=== PATIENT | female | born 1950 | race Caucasian/White ===

== ENCOUNTER 2016-09-12 10:11 | Outpatient (CLI) | payer OTHER | END 2016-09-12 10:12 | disposition home or self-care (01) | DX: I50.30 Unspecified diastolic (congestive) heart failure (principal); I10 Essential (primary) hypertension; E78.5 Hyperlipidemia, unspecified ==

== ENCOUNTER 2016-09-12 10:13 | Outpatient (CLI) | payer OTHER | END 2016-09-12 10:14 | disposition home or self-care (01) | DX: I10 Essential (primary) hypertension (principal) ==

== ENCOUNTER 2022-07-23 08:00 | Outpatient (CLI) | payer MEDICARE, OTHER ==
[2022-07-23 16:32] LABS: BILIRUBIN,URINE NEGATIVE (NEGATIVE); GLUCOSE, URINE (UA) NEGATIVE (NEGATIVE); KETONES,URINE (UA) NEGATIVE (NEGATIVE); LEUKOCYTE ESTERASE, URINE NEGATIVE (NEGATIVE); NITRITE,URINE NEGATIVE (NEGATIVE); OCCULT BLOOD,URINE NEGATIVE (NEGATIVE); PH,URINE 5.5 PH (5.0-7.5); PROTEIN,URINE NEGATIVE (NEGATIVE); UROBILINOGEN,URINE 0.2 (NORMAL) E.U./dL (NORMAL)
[2022-07-23 16:34] LABS: CLARITY,URINE CLEAR (CLEAR)
[2022-07-23 16:49] LABS: ALBUMIN 4.6 g/dL (3.2-5.5); ALBUMIN/GLOBULIN RATIO 1.3 (1.0-2.2); ALKALINE PHOSPHATASE 93 IU/L (42-121); ALT ALANINE AMINOTRANSFERASE 18 IU/L (10-60); AST ASPARTATE AMINOTRANSFERASE 19 IU/L (10-42); BILIRUBIN,TOTAL 0.9 mg/dL (0.2-1.0); BUN - BLOOD UREA NITROGEN 16 mg/dL (6-20); CALCIUM 9.6 mg/dL (8.5-10.3); CARBON DIOXIDE - CO2 27 mmol/L (21-32); CHLORIDE 104 mmol/L (101-111); CHOL/HDL RATIO 6.2 (<4.4); CHOLESTEROL 311 mg/dL; GFR - MDRD 55 (>89); GLUCOSE 93 mg/dL (70-100); HDL CHOLESTEROL 50 mg/dL; LDL CHOLESTEROL,CALCULATED 235 mg/dL; LDL/HDL RATIO 4.7 (<4.4); POTASSIUM 3.7 mmol/L (3.5-5.0); SODIUM 141 mmol/L (135-145); TOTAL PROTEIN 8.1 g/dL (6.7-8.2); TRIGLYCERIDES 128 mg/dL; VLDL CHOLESTEROL 26 mg/dL
[2022-07-24 06:09] LABS: HCV AB <0.1 s/co ratio (0.0-0.9)
== END 2022-07-23 23:59 | disposition home or self-care (01) ==
LOC: LAB.R 08:00
PROVIDERS: ATTEND Internal Medicine
DX: Z00.00 Encounter for general adult medical examination without abnormal findings (principal); I10 Essential (primary) hypertension; R07.9 Chest pain, unspecified; Z11.59 Encounter for screening for other viral diseases; R82.998 Other abnormal findings in urine
CPT/HCPCS: 80053; 80061; 81001; 81003; 83721; 84443; 86803; 87086

== ENCOUNTER 2022-08-05 14:53 | Outpatient (CLI) | payer MEDICARE, OTHER ==
--- NOTE | 2022-08-14 08:24 | Mammography Report ---
BILATERAL DIGITAL SCREENING MAMMOGRAM 3D/2D WITH EXAGGERATED CC: 08/05/2022 CLINICAL: Routine screening. Family history of breast cancer. Comparison is made to exams dated: 10/13/2015 mammogram - [facility] and 10/15/2007 mammog anika - [facility]. Both breasts are heterogeneously dense, which may obscure small masses (category c / 51-75% glandular tissue). There is a focal asymmetry in the left breast central to the nipple in the retroareolar region. This is more prominent. No other significant masses, calcifications, or other findings are seen in either breast. IMPRESSION: INCOMPLETE: NEEDS ADDITIONAL IMAGING EVALUATION The focal asymmetry in the left breast is indeterminate. Additional views with possible ultrasound a re recommended. Based on the Tyrer Cuzick model (a risk assessment model) the patients lifetime risk is 6.5% and her 10 year risk is 3.8%. According to the ACR, ACS, and NCCN guidelines, an annual breast MRI exam david g with mammogram is recommended if the patients lifetime risk is 20% or greater. This exam was interpreted at Station ID: [id number]. NOTE: For mammograms, a report in lay terms will be sent to the patient. Approximately 15% of breast malignancies will not be visualized mammographically. In the management of a palpable breast mass, a negative mammogram must not discourage biopsy of a clinically suspicious lesion. Electronically Signed By: Tony Cano M.D. lc/:08/13/2022 10:35:38 ACR BI-RADS Category 0: Incomplete 3340F PARENCHYMAL PATTERN: (D) - The breast(s) demonstrate(s) heterogeneously dense fibroglandular parnataliey allen. BI-RADS CATEGORY: (0) - 0 Mammo and [place] [id number] Immediate follow-up LATERALITY: (B)
== END 2022-08-05 14:54 | disposition home or self-care (01) ==
LOC: DI.S 14:53
PROVIDERS: ATTEND Internal Medicine
DX: Z12.31 Encounter for screening mammogram for malignant neoplasm of breast (principal); R92.8 Other abnormal and inconclusive findings on diagnostic imaging of breast; Z80.3 Family history of malignant neoplasm of breast

== ENCOUNTER 2023-04-17 11:46 | Emergency (ER) | payer MEDICARE, OTHER ==
[2023-04-17 12:22] LABS: BASOPHILS # (AUTO) 0.1 10^3/uL (0.0-0.1); BASOPHILS % (AUTO) 0.4 %; EOSINOPHILS # (AUTO) 0.2 10^3/uL (0.0-0.7); EOSINOPHILS % (AUTO) 0.8 %; HCT - HEMATOCRIT 47.7 % (37.0-47.0); HGB - HEMOGLOBIN 15.8 g/dL (12.0-16.0); LYMPHOCYTES # (AUTO) 24.4 10^3/uL (1.5-3.5); LYMPHOCYTES % (AUTO) 82.9 %; MEAN CORPUSCULAR HEMOGLOBIN 31.6 pg (27.0-31.0); MEAN CORPUSCULAR HGB CONC 33.1 g/dL (32.0-36.0); MEAN CORPUSCULAR VOLUME 95.4 fL (81.0-99.0); MEAN PLATELET VOLUME 11.6 fL (7.9-10.8); MONOCYTES # (AUTO) 0.6 10^3/uL (0.0-1.0); NEUTROPHILS % (AUTO) 13.7 %; PLT - PLATELET COUNT 193 10^3/uL (130-450); RED CELL DISTRIBUTION WIDTH 12.6 % (12.0-15.0); WHITE BLOOD COUNT 29.4 x10^3/uL (4.8-10.8)
[2023-04-17] MEDS ORDERED: ATORVASTATIN 40 MG TABLET PO STA (12:23)
[2023-04-17] MEDS ORDERED: METOPROLOL TARTRATE 50 MG TABLET PO STA (12:23)
[2023-04-17] MEDS ORDERED: METOPROLOL 5 MG/5 ML VIAL IVP STA (12:23)
[2023-04-17] MEDS ORDERED: NITROGLYCERIN 2% PASTE TOP STA (12:23)
[2023-04-17 12:24] LABS: SLIDE REVIEW? Indicated
--- NOTE | 2023-04-17 12:26 | ED Physician Documentation ---
PD HPI CHEST PAIN - Stated complaint Stated Complaint: CHEST PX, ARM PX - Chief complaint Chief Complaint: Cardiac - History obtained from History obtained from: Patient, Family - Additional information Additional information: 72-year-old woman with no known history of coronary disease, but last year she was having an echo stress and developed hypertension due to it. Because of that the stress test was aborted and she failed to follow-up after that. Over the last 6 days she has had what sounds to me like crescendo unstable angina. 6 days ago she had an episode of bilateral chest burning radiating to both arms and the jaw while walking to the mailbox. Yesterday she had an episode while looking for her cat outside. This morning she had an episode while bending over in the shower and then had another episode on arrival to the emergency department but is pain-free now. Each episode lasted 5 to 10 minutes and eventually went away. During the episode she is short of breath and sweaty but not nauseous or dizzy. She denies pedal edema or calf pain. No recent travel. She has never been a smoker. She does have a history of hyperlipidemia but was not tolerant of a statin and stopped it. She took 4 baby aspirin prior to arrival. PD PAST MEDICAL HISTORY - Allergies Allergies/Adverse Reactions: Allergies Allergy/AdvReac Type Severity Reaction Status Date / Time Sulfa (Sulfonamide Allergy Hives Verified 04/17/23 12:07 Antibiotics) PD ED PE NORMAL - Vitals Vital signs reviewed: Yes - General General: Alert and oriented X 3, No acute distress - Neck Neck: Supple, no meningeal sign, No bony TTP - Cardiac Cardiac: RRR, No murmur - Respiratory Respiratory: No respiratory distress, Clear bilaterally - Abdomen Abdomen: Non tender - Extremities Extremities: No edema, No calf tenderness / cord - Neuro Neuro: Alert and oriented X 3, Normal speech Results - Vitals Vitals: Vital Signs - 24 hr 04/17/23 04/17/23 04/17/23 12:00 12:35 13:35 Temperature 36.7 C Heart Rate 95 67 62 Respiratory 20 16 17 Rate Blood Pressure 218/102 H 200/87 H 174/73 H O2 Saturation 97 96 98 04/17/23 04/17/23 04/17/23 13:36 15:30 16:02 Temperature Heart Rate 64 60 75 Respiratory 18 14 14 Rate Blood Pressure 176/82 H 163/73 H 160/75 H O2 Saturation 99 98 100 Oxygen O2 Source Room air - EKG (time done) 1153 EKG releavant findings:: EKG personally interpreted by author of this note. Relevant findings are: Rate: Rate (enter#) Rhythm: NSR (With PVCs) [place]: Normal Intervals: Normal MD QRS: Normal Ischemia: ST depression (2 3 and F), Q waves (V1 through V3), T wave inversion (V4 through V6). No: ST elevation c/w ischemia Computer interpretation: Agree with computer - Labs Labs: Laboratory Tests 04/17/23 04/17/23 04/17/23 12:05 12:05 12:55 WBC 29.4 H RBC 5.00 Hgb 15.8 Hct 47.7 H MCV 95.4 MCH 31.6 H MCHC 33.1 RDW 12.6 Plt Count 193 MPV 11.6 H Neut # (Auto) 4.0 Lymph # (Auto) 24.4 H [place] # (Auto) 0.6 Eos # (Auto) 0.2 Baso # (Auto) 0.1 Absolute Nucleated RBC 0.00 Band Neuts % (Manual) Not Reportable Abnorm Lymph % (Manual) Not Reportable Nucleated RBC % 0.0 Neutrophils # (Manual) Not Reportable Lymphocytes # (Manual) Not Reportable Monocytes # (Manual) Not Reportable Eosinophils # (Manual) Not Reportable Basophils # (Manual) Not Reportable Differential Comment M Manual Slide Review Indicated WBC Morphology 2+ SMUDGE CELLS Platelet Estimate NORMAL (130-450,000) Platelet Morphology NORMAL APPEARANCE RBC Morph Micro Appear NORMAL APPEARANCE Sodium 140 Potassium 3.4 L Chloride 106 Carbon Dioxide 26 Anion Gap 8.0 BUN 21 H Creatinine 0.8 Estimated GFR (MDRD) 71 L Glucose 109 H Calcium 10.2 Total Bilirubin 0.8 AST 20 ALT 17 Alkaline Phosphatase 100 Troponin I High Sens 148.0 H* Total Protein 7.9 Albumin 5.1 Globulin 2.8 Albumin/Globulin Ratio 1.8 Lipase 40 SARS-CoV-2 (PCR) NOT DETECTED Slides for Path Review Indicated 04/17/23 14:32 WBC RBC Hgb Hct MCV MCH MCHC RDW Plt Count MPV Neut # (Auto) Lymph # (Auto) [place] # (Auto) Eos # (Auto) Baso # (Auto) Absolute Nucleated RBC Band Neuts % (Manual) Abnorm Lymph % (Manual) Nucleated RBC % Neutrophils # (Manual) Lymphocytes # (Manual) Monocytes # (Manual) Eosinophils # (Manual) Basophils # (Manual) Differential Comment Manual Slide Review WBC Morphology Platelet Estimate Platelet Morphology RBC Morph Micro Appear Sodium Potassium Chloride Carbon Dioxide Anion Gap BUN Creatinine Estimated GFR (MDRD) Glucose Calcium Total Bilirubin AST ALT Alkaline Phosphatase Troponin I High Sens 172.0 H* Total Protein Albumin Globulin Albumin/Globulin Ratio Lipase SARS-CoV-2 (PCR) Slides for Path Review PD Medical Decision Making - ED course ED course: 72-year-old woman comes in with history very consistent with unstable angina. No real pain at this time, but she is quite hypertensive. After initial evaluation she was administered IV and oral metoprolol, statin, Nitropaste. Work-up in the department demonstrates a white count of 29,000 with significant lymphocytosis. This was discussed with patient and and probably will need oncology follow-up for this but may or may not be related to the current issue. She is noted to have normal renal function and a troponin of 148 consistent with unstable angina/non-STEMI. [facility] was called for possible transfer at approximately 1 PM. She is pain-free at this time. [facility] was full and could not accommodate a transfer. Talked to the family and in this order we will call: 1. [place] 2. [facility] 3. [facility] 4. [facility] Of note, incidentally she does have a significant lymphocytosis. The etiology is unknown. Pathology smear is being performed. She really does not have any symptoms of more chronic fatigue. She is not aware of a prior problem with lymphocytosis. I discussed her case with Dr. Doug Jaquez at [facility] who agrees she probably will need a cath, the lymphocytosis gives him pause and he may want to do further work-up before cath because of that. He defers to the hospitalist there for admission. Accepted by Dr. Loera, hospitalist at [facility] at 2:55 PM. He does request a heparin drip. I also ordered a single dose of IV hydralazine as blood pressure is maintaining about 180/80. She is adequately beta blocked with a heart rate of around 60. Second troponin did trend up from 148, up to 172. - Critical Care Time(min): 42 Time Includes: Direct patient care, Review records, Reassess patient, Document care, Coordinate care, Medical consult, Family consult for tx dec Data interpretation: Labs, Pulse ox Procedures excluded from critical care time: EKG Departure - Departure Disposition: 02 Transfer Acute Care Hosp Clinical Impression: NSTEMI (non-ST elevated myocardial infarction), Lymphocytosis Condition: Serious Forms: PCP List Discharge Date/Time: 04/17/23 16:42
[2023-04-17 12:38] LABS: ALBUMIN 5.1 g/dL (3.2-5.5); ALBUMIN/GLOBULIN RATIO 1.8 (1.0-2.2); BILIRUBIN,TOTAL 0.8 mg/dL (0.2-1.0); CALCIUM 10.2 mg/dL (8.5-10.3); CREATININE 0.8 mg/dL (0.6-1.3); POTASSIUM 3.4 mmol/L (3.5-4.5); TOTAL PROTEIN 7.9 g/dL (6.4-8.9)
[2023-04-17 12:47] LABS: PLATELET ESTIMATE, MANUAL NORMAL (130-450,000) (NORMAL); PLATELET MORPHOLOGY NORMAL APPEARANCE (NORMAL); RBC MORPHOLOGY (MULTIPLE) NORMAL APPEARANCE (NORMAL); WBC MORPHOLOGY (MULTIPLE) 2+ SMUDGE CELLS (NORMAL)
[2023-04-17 12:48] LABS: DIFFERENTIAL COMMENT M; SLIDE SENT FOR PATH REVIEW? Indicated
--- NOTE | 2023-04-17 13:01 | XRAY Report ---
PROCEDURE: Chest 1 View X-Ray INDICATIONS: Chest Pain TECHNIQUE: One view of the chest was acquired. COMPARISON: None. FINDINGS: Surgical changes and devices: None. Lungs and pleura: No pleural effusions or pneumothorax. Lungs are clear. Lungs are hyperexpanded suggestive COPD. Mediastinum: Mediastinal contours appear normal. Heart size is normal. Bones and chest wall: No suspicious bony lesions. Overlying soft tissues appear unremarkable. IMPRESSION: No acute cardiopulmonary process. Reviewed by: Jeana Galloway MD on 04/17/2023 1:00 PM PDT Approved by: Jeana Galloway MD on 04/17/2023 1:00 PM PDT Station ID: [id number]
[2023-04-17] MEDS ORDERED: ONDANSETRON 4 MG/2 ML VIAL IVP PRN (13:22)
[2023-04-17] MEDS ORDERED: ACETAMINOPHEN 500 MG TABLET PO PRN (13:22)
[2023-04-17] MEDS ORDERED: hydrALAZINE INJ 20 MG/ML VIAL IVP STA ×2 (14:55→15:20)
[2023-04-17] MEDS ORDERED: HEPARIN 25000UNITS/500ML (D5W) 25,000 UNIT/500 ML BAG IV SCH (15:00)
[2023-04-17 16:11] VITALS: BP 160/75; O2SAT 100
[2023-04-17] MEDS ORDERED: ENOXAPARIN 60 MG/0.6 ML SYRINGE SUBQ SCH (21:00)
[2023-04-17] MEDS ORDERED: METOPROLOL TARTRATE 25 MG TABLET PO SCH (21:00)
[2023-04-17] MEDS ORDERED: ATORVASTATIN 40 MG TABLET PO SCH (21:00)
[2023-04-18] MEDS ORDERED: PANTOPRAZOLE 40 MG TABLET PO SCH (07:00)
[2023-04-18] MEDS ORDERED: amLODIPine 5 MG TABLET PO SCH (09:00)
[2023-04-18] MEDS ORDERED: ASPIRIN CHEW 81 MG TABLET PO SCH (09:00)
--- NOTE | 2023-04-22 16:29 | ED Physician Documentation ---
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 She does note that she was stented 3 times at [facility].
== END 2023-04-17 16:42 | disposition short-term general hospital (02) ==
LOC: ED 11:46
DX: I21.4 Non-ST elevation (NSTEMI) myocardial infarction (principal); D72.820 Lymphocytosis (symptomatic); I10 Essential (primary) hypertension; Z20.822 Contact with and (suspected) exposure to COVID-19
CPT/HCPCS: 36415; 71045; 80053; 83690; 84484; 85025; 87635; 93005; 96374; 96375; 99285; 99291; A9270

== ENCOUNTER 2023-04-17 16:18 | Outpatient (CLI) | payer MEDICARE, OTHER | END 2023-04-17 16:19 | disposition short-term general hospital (02) | LOC: EMS 16:18 | PROVIDERS: ATTEND Emergency Medicine | DX: I21.4 Non-ST elevation (NSTEMI) myocardial infarction (principal) | CPT/HCPCS: A0425; A0426 ==

== ENCOUNTER 2023-05-06 13:14 | Outpatient (CLI) | payer MEDICARE, OTHER | END 2023-05-06 13:15 | disposition home or self-care (01) | LOC: LAB 13:14 | PROVIDERS: ATTEND Internal Medicine | DX: D72.829 Elevated white blood cell count, unspecified (principal) | CPT/HCPCS: 81599 ==

== ENCOUNTER 2023-08-18 10:50 | Outpatient (CLI) | payer MEDICARE, OTHER ==
[2023-08-18 11:23] LABS: CHOL/HDL RATIO 3.4 (<4.4); CHOLESTEROL 124 mg/dL; HDL CHOLESTEROL 37 mg/dL; LDL CHOLESTEROL,CALCULATED 62 mg/dL; LDL/HDL RATIO 1.7 (<4.4); TRIGLYCERIDES 127 mg/dL (48-352); VLDL CHOLESTEROL 25 mg/dL
== END 2023-08-18 10:51 | disposition home or self-care (01) ==
LOC: LAB 10:50
PROVIDERS: ATTEND Internal Medicine Cardiovascular Disease
DX: I25.119 Atherosclerotic heart disease of native coronary artery with unspecified angina pectoris (principal)
CPT/HCPCS: 36415; 80061; 83721

== ENCOUNTER 2024-03-25 11:21 | Outpatient (CLI) | payer MEDICARE, OTHER ==
[2024-03-25 11:45] LABS: CREATININE 0.9 mg/dL (0.6-1.3); POTASSIUM 4.6 mmol/L (3.5-4.5)
== END 2024-03-25 11:22 | disposition home or self-care (01) ==
LOC: LAB 11:21
PROVIDERS: ATTEND Internal Medicine Cardiovascular Disease
DX: I10 Essential (primary) hypertension (principal)
CPT/HCPCS: 36415; 80048